=== PATIENT | female | born 1950 | race Caucasian/White ===

== ENCOUNTER 2017-10-20 10:05 | Inpatient (IN) ==
[~2017-10-20 10:05] MED LIST: Vancomycin 1,000 MG, Sodium Chloride IRRigation 1,000 ML IR ONE
--- NOTE | 2017-10-20 10:32 | Anesthesia Evaluation PreOp ---
Date of Encounter: 10/20/17 Time of Encounter: 10:32 - Past History Planned Operation: left CEA Cardiac History: HTN, Hyperlipidemia, Other (carotid stenosis) Pulmonary History: Former smoker (quit x 3 months), Pack/yr (50, 1 ppd x 50 yr) , COPD (wears O2 at night) LINE PILOT History: Other (anxiety) Other Medical History: GERD, Other (breast cancer) Anesthesia History: No Prior Anesthetic Complications, Past Anesthesia ( Griffin node bx, Left TKA, D&C, melanoma excision, tasha, rib resection, lumpectomy) Alcohol Use: none Drug use: none Medications and Allergies Albuterol Neb [Proventil Neb] 2.5 mg IH Q4-6H PRN 08/15/17 [History] Albuterol Sulfate [Proair Respiclick] 2 puff IH Q4H PRN 08/15/17 [History] Dicyclomine [Bentyl] 20 mg PO QID PRN 08/15/17 [History] Ergocalciferol (VITAMIN D2) [Vitamin D2] 50,000 unit PO WESA 08/15/17 [History] FLUoxetine HCl [PROzac] 20 mg PO DAILY 08/15/17 [History] Gabapentin [Neurontin] 300 mg PO BID 08/15/17 [History] Loratadine [Claritin] 10 mg PO DAILY 08/15/17 [History] Meloxicam 15 mg PO DAILY 08/15/17 [History] Oxygen 2 l IN HS 08/15/17 [History] Rosuvastatin Calcium [Crestor] 10 mg PO DAILY 08/15/17 [History] Alprazolam XR [Xanax Xr] 2 mg PO DAILY 08/30/17 [History] OxyCODONE/APAP 10/325 [Percocet 10/325 MG] 1 each PO Q6HR PRN 6 Days #24 tablet 08/30/17 [Rx] hydroCHLOROthiazide [Hydrochlorothiazide] 25 mg PO DAILY 08/30/17 [History] 3 Allergy/AdvReac Type Severity Reaction Status Date / Time ammonia Allergy Nausea Verified 09/27/17 12:22 cephalexin [From Keflex] Allergy Nausea Verified 09/27/17 12:22 codeine Allergy Nausea Verified 09/27/17 12:22 [place] Allergy Nausea Verified 09/27/17 12:22 Sulfa (Sulfonamide Allergy Nausea Verified 09/27/17 12:22 Antibiotics) - Meds/Allergy Pre-op Review Medications Reviewed: Yes Allergies Reviewed: Yes Beta Blockers on Current Med List: No Anesthesia Results - Labs Laboratory Tests 10/19/17 10/19/17 12:47 12:47 Hgb 11.9 Hct 34.6 L Plt Count 174 Sodium 137 Potassium 4.0 BUN 20 Creatinine 1.07 - Imaging EKG: report reviewed (SINUS RHYTHM POSSIBLE LEFT ATRIAL ENLARGEMENT) Anesthesia Exam Selected Entries 10/20/17 10:25 Temperature 98.3 F Pulse Rate 77 Respiratory Rate 18 Blood Pressure 115/56 O2 Sat by Pulse Oximetry 96 - HEENT Pupil (Motor): EOMI Mallampati: II Teeth: Missing Denture Type: Upper: Complete Oral Opening: Greater than 3 - LINE PILOT LOC: Oriented LINE PILOT Motor: Normal RUE, Normal LUE, Normal RLE, Normal LLE, Normal Face LINE PILOT Sensory: Normal: RUE, LUE, RLE, LLE, Face - Cardiac Rhythm: Regular Murmur: None - Pulmonary Breath Sounds: bilateral Clear Respiratory Effort: Symmetrical Anesthesia Assess/Plan ASA Score: 3 Modified Charly Scale for Level of Consciousness: Cooperative, oriented, and tranquil Anesthetic Plan: General Monitoring Plan: Standard Monitors, A-Line Recovery Plan: PACU (agrees to GA and germán)
[2017-10-20] MEDS ORDERED: Albuterol 2.5 MG/3 ML NEBULIZER IH ONE (10:33)
[2017-10-20] MEDS ORDERED: Albuterol 2.5 MG/3 ML NEBULIZER ONE (10:35)
--- NOTE | 2017-10-20 10:39 | History & Physical Report ---
Date of Encounter: 10/20/17 Time of Encounter: 11:30 24 Hour HP Update - Instructions Instructions: If the History and Physical is less than 30 days old and was completed prior to A.M. admission and or procedure and has NOT been updated on calendar day of procedure please complete this update prior to performing procedure. - Update Patient reports changes in Medical Condition: No Changes in examination, assessment, or condition: No Changes in Medication: No Preop tests/diagnostics Reviewed: Yes Surgery Remains Indicated: Yes Consent for Planned Operative Procedure(s) Verified: Yes - Pre-Operative Checklist Preoperative Checklist Indicated: Yes Prophylactic Antibiotic Ordered: Yes (vanocmycin due to MRSA risk and allergy) Home Medications Include Beta Santa: No Beta Santa Taken Today (Day of Surgery): No Beta Santa Taken Yesterday (Day Prior to Surgery): No Is VTE Prophylaxis Indicated?: Yes
[2017-10-20] MEDS ORDERED: Ringers Solution, Lactated 1,000 ML IVC SCH (10:45)
[2017-10-20] MEDS: Aspirin 81 MG TAB.CHEW PO ONE ×2 (11:01→11:02)
[2017-10-20] MEDS ORDERED: Heparin 1,000 UNITS/500 mL 500 ML ONE (11:10)
[2017-10-20] MEDS ORDERED: Lidocaine 1% 20 ML MDV ONE (11:33)
[2017-10-20] MEDS ORDERED: Heparin 1,000 UNITS/500 mL 1,000 ML ONE (11:33)
[2017-10-20] MEDS ORDERED: Protamine Sulfate 50 MG/5 ML VIAL IVP ONE (11:35)
[2017-10-20] MEDS ORDERED: Bupivacaine-MPF 0.25% 10 ML VIAL ONE (11:35)
[2017-10-20] MEDS ORDERED: *HR* Heparin 5,000 UNIT/ML VIAL ONE ×2 (12:58→13:16)
[2017-10-20] MEDS ORDERED: *HR* Rocuronium Bromide 50 MG/5 ML VIAL ONE (12:58)
[2017-10-20] MEDS ORDERED: EPHEDrine 50 MG/ML VIAL ONE (12:58)
[2017-10-20] MEDS ORDERED: Ondansetron 4 MG/2 ML VIAL ONE (12:58)
[2017-10-20] MEDS ORDERED: *HR* Midazolam HCl 2 MG/2 ML VIAL ONE (12:58)
[2017-10-20] MEDS ORDERED: *HR* Remifentanil 2 MG VIAL IVP ONE (12:58)
[2017-10-20] MEDS ORDERED: *HR* PHENYLEPHRINE 1,000 MCG/10 ML SYRINGE IVP ONE ×2 (12:58)
[2017-10-20] MEDS ORDERED: Lidocaine -MPF 2% 2 ML VIAL ONE (12:58)
[2017-10-20] MEDS ORDERED: Lidocaine -MPF 4% 5 ML AMPUL ONE (12:58)
[2017-10-20] MEDS ORDERED: *HR* FentaNYL (PF) 100 MCG/2 ML VIAL ONE (12:58)
[2017-10-20] MEDS ORDERED: *HR* Succinylcholine 200 MG/10 ML VIAL IVP ONE (12:58)
[2017-10-20] MEDS ORDERED: Dexamethasone 4 MG/ML VIAL ONE (12:58)
[2017-10-20] MEDS ORDERED: *HR* Labetalol 20 MG/4 ML SYRINGE IVP PRN ×2 (13:02→15:47)
[2017-10-20] MEDS ORDERED: MORPHINE SUL Oral CONC 10 MG/0.5 ML ORAL.SYG SL PRN (13:02)
[2017-10-20] MEDS ORDERED: Ondansetron 4 MG/2 ML VIAL IVP ONE (13:02)
[2017-10-20] MEDS ORDERED: *HR* Meperidine 25 MG/ML SYRINGE IVP PRN (13:02)
[2017-10-20] MEDS ORDERED: *HR* Promethazine 25 MG/ML VIAL IVP PRN (13:02)
[2017-10-20] MEDS ORDERED: *HR* FentaNYL (PF) 100 MCG/2 ML VIAL IVP PRN (13:02)
[2017-10-20] MEDS ORDERED: *HR* OxyCODONE Immed Rel 5 MG TABLET PO PRN (13:02)
--- NOTE | 2017-10-20 14:24 | Operative Note ---
Date of procedure: 10/20/17 Pre-op diagnosis: 80-99% left internal carotid artery stenosis Post-op diagnosis: same Procedure: Left carotid endarterectomy with Hemashield patch angioplasty Complications: None Anesthesia: GETA Surgeon: Angel Harrison Was there an logistics assistant present: No Estimated blood loss (cc): 50 Specimen: Left carotid plaque Condition: stable Disposition: PACU Procedure in Detail: Indications: The patient is a 66-year-old female who recently underwent lumpectomy for breast cancer. She is found have a carotid bruit. She underwent a carotid duplex and was found to have an 80-99% left internal carotid artery stenosis. Carotid endarterectomy was recommended to reduce her risk of cerebrovascular accident. Procedure: The patient was identified in the preoperative area. The risks, benefits, and alternatives of the procedure were discussed and all questions were answered. The patient was then taken to the operating room and placed in supine position on the operating table. After the induction of general endotracheal anesthesia, the patient was cleaned and draped in normal sterile fashion. A longitudinal incision was made anterior to the right sternocleidomastoid muscle. Hemostasis was obtained via electrocautery. Through a process of blunt , sharp, and electrocautery dissection, the platysma was traversed and the jugular vein was identified. The facial vein was dissected, clamped, divided and ligated with a 2-0 silk suture ligature. The jugular vein was retracted to expose the carotid bifurcation. The patient received 3000 units of heparin intravenously at this time. Proximal dissection of the common and external carotid arteries were performed circumferentially. Dissection of the internal carotid was performed circumferentially. Vessels loops were passed around the internal and external carotid and an umbilical tape was passed from the common carotid artery. The patient received additional 2000 units of heparin intravenously. Additional heparin was given throughout the case to maintain adequate anticoagulation. After waiting adequate time for the heparin to circulate, the vessels were occluded and a longitudinal arteriotomy was made into the common carotid artery and extended into the internal carotid beyond the plaque. The plaque was long, extended distally and was heavily calcified. Vigorous pulsatile retrograde flow was noted from the internal carotid artery upon release of the vessel loop. Due to the rapid pulsatile retrograde flow, no shunt was placed. A dental [place] was then used to perform a standard endarterectomy. Proximal and distal endpoints were inspected. No elevated flaps were noted. Additional heparin was given throughout the procedure to maintain adequate anticoagulation. A Hemashield patch was cut to fit the arteriotomy and sutured in place with running 6-0 Prolene. Prior to completing the patch, each vessel was flushed and then reoccluded. Heparinized saline was infused into the lumen. The patch was completed. Flow was restored in the external carotid artery, followed the common carotid artery and then the internal carotid artery were opened. A low resistance arterialized signal was present within the internal carotid artery beyond the patch. Thrombin and Gelfoam were used to aid in hemostasis. Meticulous hemostasis was obtained throughout the wound with electrocautery. Platelet rich and platelet poor plasma were infused into the wounds. The sternocleidomastoid was reapproximated with interrupted 3-0 Vicryl. Platelet rich and platelet poor plasma were infused into the wound. A TLS drain was brought through a separate stab incision and sutured in place with 0 silk suture. The platysma was reapproximated with running 3-0 Vicryl. Local anesthetic was infused in the skin. A 3-0 Monocryl was used to reapproximate the skin. A sterile dressing was applied. The patient was extubated, taken to the recovery room in stable condition.
[2017-10-20] MEDS ORDERED: Albuterol 2.5 MG/3 ML NEBULIZER IH PRN (15:47)
[2017-10-20] MEDS ORDERED: Ondansetron 4 MG/2 ML VIAL IVP PRN (15:47)
[2017-10-20] MEDS ORDERED: Naloxone 0.4 MG/ML INJ IVP PRN (15:47)
--- NOTE | 2017-10-20 16:31 | Anesthesia Evaluation Post Op ---
Date of Encounter: 10/20/17 Time of Encounter: 16:30 - Vital Signs Vital Signs: Vital Signs/O2 Sat, Most Current Temp Pulse Resp BP Pulse Ox 98.1 F 84 17 117/61 96 10/20/17 15:45 10/20/17 15:50 10/20/17 15:45 10/20/17 15:45 10/20/17 15:50 - Lungs Lungs: Clear Ascult./Percussion - Airway Airway: Non-obstructed - Cardiovascular Regular Rate - Mental Status Mental Status: Alert & Oriented, Answers Appropriately - Pain Pain Scale: 0 Pain Scale used: Numeric (1 - 10) - Nausea Vomiting Nausea Vomiting: Not Present - Hydration Hydration: NPO - Discharge PostOp Status: Transfer Patient to floor
[2017-10-20] MEDS: *HR* Metoprolol 5 MG/5 ML VIAL IVP SCH (16:56)
--- NOTE | 2017-10-20 17:01 | Discharge Summary ---
<Angel Harrison - Last Filed: 10/20/17 16:57> Date of Encounter: 10/20/17 - Discharge Diagnosis (1) Carotid stenosis, left Status: Acute (2) Essential hypertension Status: Acute (3) Mixed hyperlipidemia Status: Acute (4) COPD (chronic obstructive pulmonary disease) Status: Acute (5) Chronic kidney disease, stage III (moderate) Status: Acute - Hospital Course Hospital course: Ms. Pena is a 66 year old female - Time Spent with Patient Total time spent providing and/or coordinating discharge services: - Discharge Medications Prescriptions: HYDROcodone/Acet 5/325 mg [[place] 5-325 mg] 1 tab PO Q6H PRN 3 Days #12 tab PRN Reason: Postoperative pain Home Medications: Albuterol Neb [Proventil Neb] 2.5 mg IH Q4-6H PRN 08/15/17 [History] Albuterol Sulfate [Proair Respiclick] 2 puff IH Q4H PRN 08/15/17 [History] Dicyclomine [Bentyl] 20 mg PO QID PRN 08/15/17 [History] Ergocalciferol (VITAMIN D2) [Vitamin D2] 50,000 unit PO WESA 08/15/17 [History] FLUoxetine HCl [Prozac] 20 mg PO DAILY 08/15/17 [History] Gabapentin [Neurontin] 300 mg PO BID 08/15/17 [History] Loratadine [Claritin] 10 mg PO DAILY 08/15/17 [History] Meloxicam 15 mg PO DAILY 08/15/17 [History] Oxygen 2 l IN HS 08/15/17 [History] Rosuvastatin Calcium [Crestor] 10 mg PO DAILY 08/15/17 [History] Alprazolam XR [Xanax Xr] 2 mg PO DAILY 08/30/17 [History] hydroCHLOROthiazide [Hydrochlorothiazide] 25 mg PO DAILY 08/30/17 [History] Aspirin [Lo-Dose Aspirin EC] 81 mg PO DAILY 10/20/17 [History] HYDROcodone/Acet 5/325 mg [[place] 5-325 mg] 1 tab PO Q6H PRN 3 Days #12 tab 10/20 [Rx] Allergies/Adverse Reactions: 3 Allergy/AdvReac Type Severity Reaction Status Date / Time acetaminophen AdvReac Nausea Verified 10/20/17 10:54 [From Darvocet-N] ammonia AdvReac Nausea Verified 10/20/17 10:54 cephalexin [From Keflex] AdvReac Nausea Verified 10/20/17 10:54 codeine AdvReac Nausea Verified 10/20/17 10:54 morphine AdvReac Nausea Verified 10/20/17 10:54 Oxycodone AdvReac Nausea Verified 10/20/17 10:54 propoxyphene AdvReac Nausea Verified 10/20/17 10:54 [From Darvocet-N] [place] AdvReac Nausea Verified 10/20/17 10:54 Sulfa (Sulfonamide AdvReac Nausea Verified 10/20/17 10:54 Antibiotics) Date of admission: 10/20/17 15:39 Primary care physician: Liza Allan CNP Procedure(s) Performed: Left carotid endarterectomy Discharging clinician: Angel Harrison Exam Vital Signs, Last 4 Hours Temp Pulse Resp BP Pulse Ox 10/20/17 15:50 84 96 10/20/17 15:45 98.1 F 85 17 117/61 94 10/20/17 15:35 97.9 F 85 19 113/63 90 10/20/17 15:19 98.5 F 87 16 125/65 93 10/20/17 15:01 98.5 F 86 16 133/59 98 10/20/17 14:51 97.8 F 88 18 132/67 93 10/20/17 14:41 98.2 F 88 18 143/70 98 10/20/17 14:31 98.2 F 98 20 147/81 99 - Patient Status Disposition: Home, Self-Care Condition: Good Functional capacity at discharge: independent ambulation Overall status at discharge: patient is back to baseline - Discharge Instructions Follow Up With: Liza Allan CNP [Primary Care Provider] - 10/27/17 10:00 am Angel Harrison MD [Partnered Physician] - 12/04/17 11:00 am Additional Instructions: May remove bandage and shower on 2017. Wash wound gently and pat to dry. No driving for 7 days. Call [phone] with questions or concerns. - Diet and Activity Activity: increase activity as tolerated Diet: low fat, low cholesterol - VTE Documentation of Mechanical Device: Intermittent pneumatic compression device <Odilon Menezes - Last Filed: 10/21/17 10:08> Date of Encounter: 10/21/17 Time of Encounter: 09:45 - Hospital Course Hospital course: Ms. Pena is a 66 year old female - Time Spent with Patient Total time spent providing and/or coordinating discharge services: Date of admission: 10/20/17 15:39 Primary care physician: Liza Allan CNP Exam Vital Signs, Last 4 Hours Temp Pulse Resp BP Pulse Ox 10/21/17 07:49 67 10/21/17 07:42 99 10/21/17 07:31 73 18 99 10/21/17 06:30 97.9 F 71 17 103/51 98 General: Present: Conversant, Well developed, Well nourished HEENT: Present: Atraumatic, Pupils equal Neck: Present: Other (Left CEA incision looks good) Lungs: Present: Normal Breath Sounds Neuro: Present: Alert and responsive Abdomen: Present: Soft, Non-tender Vascular: Present: Normal capillary refill, Pulse, normal Skin: Present: No rashes noted on visualized skin Musculoskeletal: Present: No Chest Wall Tenderness
[2017-10-20] MEDS ORDERED: *HR* HYDROcodone/Acet 5/325 mg TABLET PO PRN (17:03)
[2017-10-20] MEDS ORDERED: 0.9 % Sodium Chloride 1,000 ML IVC SCH (17:15)
[2017-10-20] MEDS ORDERED: Ketorolac 15 MG/ML VIAL IVP SCH (18:00)
[2017-10-20] MEDS: Gabapentin 300 MG CAPSULE PO SCH (20:10)
[2017-10-21] MEDS ORDERED: *HR* Metoprolol 5 MG/5 ML VIAL IVP SCH
[2017-10-21] MEDS: *HR* Metoprolol 5 MG/5 ML VIAL IVP SCH ×2 (00:06→06:09)
[2017-10-21] MEDS ORDERED: *HR* Heparin 5,000 UNIT/ML VIAL SQ SCH ×2 (06:00)
[2017-10-21 06:48] VITALS: BP 103/51
[2017-10-21] MEDS: Gabapentin 300 MG CAPSULE PO SCH (07:53)
[2017-10-21] MEDS ORDERED: Loratadine 10 MG TABLET PO SCH (09:00)
[2017-10-21] MEDS ORDERED: ALPRAZolam 0.5 MG TABLET PO SCH (09:00)
[2017-10-21] MEDS ORDERED: FLUoxetine 20 MG CAPSULE PO SCH (09:00)
[2017-10-21] MEDS ORDERED: Aspirin Enteric Coated 81 MG Tablet PO SCH (09:00)
[2017-10-21] MEDS ORDERED: hydroCHLOROthiazide 25 MG TABLET PO SCH (09:00)
== END 2017-10-21 11:15 | disposition home or self-care (01) | DRG 37 ==
LOC: SAMDAY 10:05 → 2NNU 15:39
PROVIDERS: ADMIT Surgery; ATTEND Surgery